=== PATIENT | male | born 1965 | race Caucasian/White ===

== ENCOUNTER 2019-03-24 15:38 | Emergency (ER) | payer OTHER ==
[~2019-03-24] VITALS: Ht 167.6 cm; Wt 77.1 kg
[2019-03-24] MEDS ORDERED: ALPR0.255 PO (16:13)
[2019-03-24] MEDS ORDERED: NALT50TA PO (16:13)
[2019-03-24] MEDS ORDERED: NEFA200T PO (16:13)
[2019-03-24] MEDS ORDERED: HYDR-3024 PO (16:13)
[2019-03-24] MEDS ORDERED: BUPR150T5 PO (16:13)
[2019-03-24] MEDS ORDERED: PROZAC (16:13)
[2019-03-24] MEDS ORDERED: IV NORMAL SALINE 1000 ML BAG IV ONE (16:30)
[2019-03-24] MEDS ORDERED: LORAZEPAM 2 MG/1 ML VIAL IV ONE ×2 (16:30→17:15)
[2019-03-24 16:42] LABS: BASOPHILS # (AUTO) 0.1 K/uL (0.0-8.0); BASOPHILS % (AUTO) 1.3 % (0.0-2.0); EOSINOPHILS % (AUTO) 0.9 % (0.0-7.0); HEMOGLOBIN 13.8 g/dL (12.5-16.3); LYMPHOCYTES # (AUTO) 0.9 K/uL (20.0-40.0); LYMPHOCYTES % (AUTO) 24.6 % (20.5-51.5); MEAN CORPUSCULAR HEMOGLOBIN 25.7 uug (23.8-33.4); MEAN CORPUSCULAR HGB CONC 32 g/dL (32.5-36.3); MEAN CORPUSCULAR VOLUME 79.9 fL (73.0-96.2); MONOCYTES # (AUTO) 0.3 K/uL (2.0-10.0); MONOCYTES % (AUTO) 8.1 % (0.0-11.0); NEUTROPHILS # (AUTO) 2.5 K/uL (1.8-8.9); NEUTROPHILS % (AUTO) 65.1 % (38.5-71.5); PLATELET COUNT (AUTO) 178 K/uL (152-348); RED BLOOD CELL COUNT(AUTO) 5.38 MIL/uL (4.06-5.63); WHITE BLOOD COUNT (AUTO) 3.9 K/uL (3.6-10.2)
[2019-03-24 16:46] LABS: CARBON DIOXIDE 27 mmol/L (21-32); CHLORIDE 101 mmol/L (98-107); CREATININE 0.9 mg/dL (0.6-1.3); GLUCOSE 104 mg/dL (74-106); POTASSIUM 3.8 mmol/L (3.5-5.1); UREA NITROGEN, BLOOD 19 mg/dL (7-18)
[2019-03-24 16:52] LABS: ACETAMINOPHEN < 2.0 ug/mL (10-30); ALANINE AMINOTRANSFERASE 359 U/L (16-63); ALKALINE PHOSPHATASE 63 U/L (50-136); ASPARTATE AMINOTRANSFERASE 256 U/L (15-37); BILIRUBIN,DIRECT 0.4 mg/dL (0.0-0.2); ETHANOL 66 MG/DL (0-0); TOTAL PROTEIN, SERUM 7.4 g/dL (6.4-8.2)
[2019-03-24] MEDS ORDERED: LORAZEPAM 2 MG/1 ML VIAL ONE ×2 (17:10→17:28)
--- NOTE | 2019-03-24 17:12 | NUR ---
Patient says that he feels a little better & less anxious. Comfort & safety measures maintained.
[2019-03-24 17:14] LABS: MAGNESIUM 1.6 mg/dL (1.8-2.4)
[2019-03-24] MEDS ORDERED: MAGNESIUM SULFATE/D5W 100 ML IV SCH (18:00)
[2019-03-24] MEDS ORDERED: MAGNESIUM SULFATE/D5W 100 ML ONE (18:01)
[2019-03-24] MEDS ORDERED: LORAZEPAM 0.5 MG TABLET PO ONE (18:30)
--- NOTE | 2019-03-24 19:05 | NUR ---
IV removed. Catheter intact and site benign. Pressure and 4x4 gauze applied to site. No bleeding noted.
[2019-03-24] MEDS ORDERED: LORAZEPAM 1 MG TABLET ONE (19:08)
--- NOTE | 2019-03-24 19:18 | NUR ---
Patient discharged to home in stable conditon with family taking patient home. Written and verbal after care instructions given. Patient verbalizes understanding of instructions. Walked out of ER with no distress noted
[2019-03-24 19:19] VITALS: BP 150/85
== END 2019-03-24 19:20 | disposition home or self-care (01) ==
LOC: ER 15:38
DX: F41.9 Anxiety disorder, unspecified (principal); F10.239 Alcohol dependence with withdrawal, unspecified; K70.10 Alcoholic hepatitis without ascites; E83.42 Hypomagnesemia; F32.9 Major depressive disorder, single episode, unspecified; Z79.899 Other long term (current) drug therapy; Y90.2 Blood alcohol level of 40-59 mg/100 ml
CPT/HCPCS: 36415; 76705; 80048; 80076; 83690; 83735; 85025; 96365; 96375; 96376; 99284; G0480 ×2; G0481; J2060 ×2; J3475; A4663; J7030

== ENCOUNTER 2019-07-02 18:49 | Emergency (ER) | payer OTHER ==
[~2019-07-02] VITALS: Ht 167.6 cm; Wt 77.1 kg
[~2019-07-02 18:49] MED LIST: ALPR0.255 PO; BUPR150T5 PO; HYDR-3024 PO; NALT50TA PO; NEFA200T PO; PROZAC
[2019-07-02] MEDS ORDERED: LORAZEPAM 2 MG/1 ML VIAL IV ONE (19:30)
[2019-07-02] MEDS ORDERED: PANTOPRAZOLE SODIUM 40 MG VIAL IV ONE (19:30)
[2019-07-02] MEDS ORDERED: IV NORMAL SALINE 1000 ML BAG IV ONE (19:30)
[2019-07-02 19:48] LABS: BASOPHILS # (AUTO) 0.1 K/uL (0.0-8.0); BASOPHILS % (AUTO) 2.5 % (0.0-2.0); EOSINOPHILS # (AUTO) 0.1 K/uL (0.0-0.7); EOSINOPHILS % (AUTO) 1.6 % (0.0-7.0); HEMATOCRIT 47.3 % (36.7-47.1); HEMOGLOBIN 15.8 g/dL (12.5-16.3); LYMPHOCYTES # (AUTO) 1.4 K/uL (20.0-40.0); LYMPHOCYTES % (AUTO) 31.4 % (20.5-51.5); MEAN CORPUSCULAR HGB CONC 33 g/dL (32.5-36.3); MEAN CORPUSCULAR VOLUME 83.8 fL (73.0-96.2); MONOCYTES # (AUTO) 0.6 K/uL (2.0-10.0); MONOCYTES % (AUTO) 13.9 % (0.0-11.0); NEUTROPHILS # (AUTO) 2.3 K/uL (1.8-8.9); NEUTROPHILS % (AUTO) 50.6 % (38.5-71.5); PLATELET COUNT (AUTO) 374 K/uL (152-348); RED BLOOD CELL COUNT(AUTO) 5.64 MIL/uL (4.06-5.63); WHITE BLOOD COUNT (AUTO) 4.6 K/uL (3.6-10.2)
[2019-07-02 19:52] LABS: POTASSIUM 3.8 mmol/L (3.5-5.1)
[2019-07-02 19:57] LABS: BILIRUBIN,DIRECT 0.2 mg/dL (0.0-0.2); BILIRUBIN,TOTAL 0.5 mg/dL (0.2-1.0); TOTAL PROTEIN, SERUM 7.7 g/dL (6.4-8.2)
--- NOTE | 2019-07-02 20:20 | NUR ---
ROUNDING AND BACKING MACHINE OPERATOR CALLED NEREYDA : [phone] Addendum: 07/03/19 at 0039 by NISHI [facility] VALUE 0.31
[2019-07-02] MEDS ORDERED: PANTOPRAZOLE SODIUM 40 MG VIAL ONE (20:39)
[2019-07-02] MEDS ORDERED: LORAZEPAM 2 MG/1 ML VIAL ONE (20:40)
[2019-07-02 21:05] LABS: *BILIRUBIN,URIN NEGATIVE (NEGATIVE); *BLOOD, URINE 1+ (NEGATIVE); *CLARITY,URINE CLEAR (CLEAR); *COLOR,URINE DARK YELLOW (YELLOW); *KETONES,URINE 1+ (NEGATIVE); *UROBILINOGEN,URINE 0.2 E.U./dl (NORMAL); LEUKOCYTE ESTERASE ,URINE NEGATIVE (NEGATIVE); NITRITE, URINE NEGATIVE (NEGATIVE); PH,URINE 5.5 (5.0-8.0); UGLUCOSE NEGATIVE (NEGATIVE)
[2019-07-02 21:13] LABS: MUCUS,URINE MANY /LPF (0-FEW); WBC,URINE 0-3 /HPF (0-3)
[2019-07-02 21:16] LABS: *AMPHETAMINE, URINE NEGATIVE (NEGATIVE); *BARBITURATE, URINE NEGATIVE (NEGATIVE); *CANNABINOID, URINE NEGATIVE (NEGATIVE); *COCCAINE, URINE NEGATIVE (NEGATIVE); *OPIATE, URINE NEGATIVE (NEGATIVE); *PHENCYCLIDINE SCREEN,URINE NEGATIVE (NEGATIVE)
--- NOTE | 2019-07-02 22:00 | NUR ---
Patient discharged to home in stable conditon. Written and verbal after care instructions given. Patient verbalizes understanding of instructions. AMBULATORY W/ STABLE GAIT ALL BELONGINGS W/ PT DC IV SALINE LOCK PRIOR TO DISCHARGE
[2019-07-03 00:43] VITALS: BP 140/81
== END 2019-07-02 22:00 | disposition home or self-care (01) ==
LOC: ER 18:51
DX: F10.129 Alcohol abuse with intoxication, unspecified (principal); F41.9 Anxiety disorder, unspecified; Z79.899 Other long term (current) drug therapy; Y90.8 Blood alcohol level of 240 mg/100 ml or more
CPT/HCPCS: 36415; 80048; 80076; 80307; 81000; 81001; 83690; 84484; 85025; 85730; 96374; 96375; 99283; C9113; G0480; J2060; 70030-TC; A4663; J7030

== ENCOUNTER 2023-06-15 11:34 | Emergency (ER) | payer OTHER ==
[~2023-06-15] VITALS: Ht 167.6 cm; Wt 74.8 kg
[~2023-06-15 11:34] MED LIST changes: -ALPR0.255 PO; -HYDR-3024 PO; +HYDR10TA37 PO; -NALT50TA PO; -NEFA200T PO; -PROZAC
[2023-06-15] MEDS ORDERED: IV NORMAL SALINE 1000 ML BAG IV ONE (12:00)
[2023-06-15] MEDS ORDERED: FAMOTIDINE. 20 MG/2 ML VIAL IV ONE ×2 (12:00→12:04)
[2023-06-15] MEDS ORDERED: [UNRECOGNIZED DRUG - OTHER] (12:01)
[2023-06-15] MEDS ORDERED: [UNRECOGNIZED DRUG - OTHER] (12:01)
[2023-06-15] MEDS ORDERED: TRAZODONE (12:01)
[2023-06-15] MEDS ORDERED: LEXAPRO (12:01)
[2023-06-15] MEDS ORDERED: [UNRECOGNIZED DRUG - OTHER] (12:01)
[2023-06-15 12:20] LABS: BASOPHILS # (AUTO) 0.2 K/UL (0.0-0.2); BASOPHILS % (AUTO) 3.8 % (0.0-2.0); EOSINOPHILS % (AUTO) 0.9 % (0.0-7.0); HEMATOCRIT 46.5 % (36.7-47.1); HEMOGLOBIN 15.7 g/dL (12.5-16.3); LYMPHOCYTES # (AUTO) 0.7 K/uL (0.8-4.8); LYMPHOCYTES % (AUTO) 18.4 % (20.5-51.5); MEAN CORPUSCULAR HEMOGLOBIN 29.9 uug (23.8-33.4); MEAN CORPUSCULAR HGB CONC 34 g/dL (32.5-36.3); MEAN CORPUSCULAR VOLUME 88.6 fL (73.0-96.2); MONOCYTES # (AUTO) 0.3 K/uL (0.1-1.30); MONOCYTES % (AUTO) 7.3 % (0.0-11.0); NEUTROPHILS # (AUTO) 2.8 K/uL (1.8-8.9); NEUTROPHILS % (AUTO) 69.6 % (38.5-71.5); PLATELET COUNT (AUTO) 185 K/uL (152-348); RED BLOOD CELL COUNT(AUTO) 5.25 MIL/uL (4.06-5.63); RED CELL DISTRIBUTION WIDTH 19.3 % (12.1-16.2)
[2023-06-15 12:22] LABS: DIFFERENTIAL COMMENT 1
[2023-06-15 12:24] LABS: CALCIUM 8.5 mg/dL (8.5-10.1); CREATININE 1.1 mg/dL (0.6-1.3); POTASSIUM 3.9 mmol/L (3.5-5.1)
[2023-06-15 12:43] LABS: BILIRUBIN,TOTAL 0.6 mg/dL (0.2-1.0)
[2023-06-15 12:44] LABS: BILIRUBIN,DIRECT 0.3 mg/dL (0.0-0.2)
[2023-06-15 12:48] LABS: ALBUMIN 3.5 g/dL (3.4-5.0); TOTAL PROTEIN, SERUM 8.4 g/dL (6.4-8.2)
[2023-06-15 14:10] VITALS: BP 147/97; O2SAT 97
== END 2023-06-15 14:11 | disposition home or self-care (01) ==
LOC: ER 11:39
DX: F10.129 Alcohol abuse with intoxication, unspecified (principal); Z79.899 Other long term (current) drug therapy; Y90.8 Blood alcohol level of 240 mg/100 ml or more
CPT/HCPCS: 80076; 80048; 83690; 85025; 36415; 99283; 96361; 96374; 80320; J3490; J7040; A4663; G0480